=== PATIENT | female | born 1980 | race Caucasian/White ===

== ENCOUNTER → 2024-10-14 16:02 | Outpatient (REF) | payer BC, SELFPAY | LOC: RAD 16:02 | PROVIDERS: ATTENDING PHYSICIAN Obstetrics & Gynecology; FAMILY PHYSICIAN Family Medicine Sports Medicine | DX: N93.8 Other specified abnormal uterine and vaginal bleeding (principal) | CPT/HCPCS: 76830; 76856 ==

== ENCOUNTER 2025-08-10 06:06 | Day surgery (SDC) | payer BC, SELFPAY ==
[2025-08-10] VITALS (11 sets, daily range): BP systolic 93–109; BP diastolic 58–71; BMI 30.1
[2025-08-10] MEDS: CELEBREX 200 MG PO (07:45)
[2025-08-10] MEDS: TYLENOL 1000 MG PO (07:45)
[2025-08-10] MEDS: NORMOSOL-R/PLASMALYTE-A 1000 IV (07:48)
[2025-08-10] MEDS: DILAUDID 0.25 MG IV (09:18)
== END 2025-08-10 10:27 | disposition home or self-care (01) ==
LOC: SDS 06:06
PROVIDERS: ATTENDING PHYSICIAN Specialist
DX: S83.281A Other tear of lateral meniscus, current injury, right knee, initial encounter (principal); X58.XXXA Exposure to other specified factors, initial encounter; M94.261 Chondromalacia, right knee
CPT/HCPCS: 29881